=== PATIENT | female | born 1955 | race Caucasian/White ===

== ENCOUNTER 2017-01-07 02:40 | Inpatient (IN) | payer MEDICAID, OTHER ==
--- NOTE | 2017-01-07 03:10 | ED PDOC ---
Arrival/HPI - General Chief Complaint: Abdominal Pain Time Seen by Provider: 01/07/17 02:56 Historian: Patient - History of Present Illness Narrative History of Present Illness (Text): 01/07/17 03:07 Hermelinda Baker is a 61 year old female, whose past medical history includes hypertension, who presents to the Emergency Room complaining of abdominal pain. Patient states after eating at 20:00 yesterday she has been experiencing upper abdominal pain radiating to her back with associated nausea and vomiting. Relative states patient had a similar episode last week, but notes it was not as intense and resolved on its own. Patient denies any fever, chills, chest pain , cough, diarrhea, urinary symptoms, back pain, neck pain, headache, dizziness, or any other complaints. Symptom Onset: Gradual Symptom Course: Unchanged Activities at Onset: Rest, Light Context: Home Past Medical History - Provider Review Nursing Documentation Reviewed: Yes - Cardiac Hx Cardiac Disorders: Yes Hx Hypertension: Yes - Psychiatric Hx Substance Use: No Family/Social History - Physician Review Nursing Documentation Reviewed: Yes Family/Social History: No Known Family HX Smoking Status: Former Smoker Hx Alcohol Use: No Hx Substance Use: No Allergies/Home Meds Allergies/Adverse Reactions: Allergies No Known Allergies Allergy (Unverified 01/01/15 10:21) Review of Systems - Physician Review All systems were reviewed & negative as marked: Yes - Review of Systems Constitutional: Normal. absent: Fevers Eyes: Normal ENT: Normal Respiratory: Normal. absent: SOB, Cough Cardiovascular: Normal. absent: Chest Pain Gastrointestinal: Abdominal Pain, Nausea, Vomiting. absent: Diarrhea Genitourinary Female: Normal. absent: Dysuria, Frequency, Hematuria, Urine Output Changes Musculoskeletal: Normal. absent: Back Pain, Neck Pain Skin: Normal. absent: Rash Neurological: Normal. absent: Headache, Dizziness Endocrine: Normal Hemo/Lymphatic: Normal Psychiatric: Normal Physical Exam Vital Signs Reviewed: Yes Vital Signs Temp Pulse Resp BP Pulse Ox 01/07/17 08:02 72 17 154/78 H 98 01/07/17 07:00 73 17 195/94 H 96 01/07/17 05:45 76 184/92 H 01/07/17 05:30 79 16 205/94 H 96 01/07/17 03:45 71 16 205/91 H 99 01/07/17 03:30 86 16 218/96 H 98 01/07/17 02:52 97.4 F L 76 20 224/107 H 100 Temperature: Afebrile Blood Pressure: Hypertensive Pulse: Regular Respiratory Rate: Normal Appearance: Positive for: Well-Appearing, Non-Toxic, Comfortable Pain Distress: None Mental Status: Positive for: Alert and Oriented X 3 - Systems Exam Head: Present: Atraumatic, Normocephalic Pupils: Present: PERRL Extroacular Muscles: Present: EOMI Conjunctiva: Present: Normal Mouth: Present: Moist Mucous Membranes Neck: Present: Normal Range of Motion Respiratory/Chest: Present: Clear to Auscultation, Good Air Exchange. No: Respiratory Distress, Accessory Muscle Use Cardiovascular: Present: Regular Rate and Rhythm, Normal S1, S2. No: Murmurs Abdomen: Present: Tenderness (Palpable tenderness to RUQ), Normal Bowel Sounds. No: Distention, Peritoneal Signs Back: Present: Normal Inspection Upper Extremity: Present: Normal Inspection. No: Cyanosis, Edema Lower Extremity: Present: Normal Inspection. No: Edema Neurological: Present: GCS=15, CN II-XII Intact, Speech Normal Skin: Present: Warm, Dry, Normal Color. No: Rashes Psychiatric: Present: Alert, Oriented x 3, Normal Insight, Normal Concentration Medical Decision Making ED Course and Treatment: 01/07/17 03:07 Impression: 61 year old female c/o upper abdominal pain, nausea, and vomiting. Differential Diagnosis included but are not limited to: biliary colic vs. gastritis Plan: -- US Gallbladder and Pancreas -- EKG -- CXR -- Labs, lipase -- IV fluids -- Zofran -- Dilaudid -- Reassess and disposition Prior Visits: Notes and results from previous visits were reviewed. Progress Notes: Reviewed EKG, NSR at 77 bpm. No acute changes. 01/07/17 04:33 CXR shows no acute processes. Reviewed sono, US Gallbladder and Pancreas shows: Gallstones with gallbladder wall thickening noting a stone appearing in the neck of the gallbladder. No sonographic Frias's sign demonstrated however. Correlation for acute cholecystitis recommended. 01/07/17 07:00 Case was d/w who accepted on his service. on consult. - Lab Interpretations Microbiology Results: Microbiology Results 01/07/17 05:30 Blood Blood Culture - Preliminary NO GROWTH AFTER 48 HOURS 01/07/17 05:00 Blood Blood Culture - Preliminary NO GROWTH AFTER 48 HOURS Lab Results: 01/07/17 03:10 01/07/17 03:10 Lab Results 01/07/17 03:10: WBC 10.1, RBC 4.45, Hgb 13.2, Hct 38.7, MCV 87.0, MCH 29.7, MCHC 34.1, RDW 13.0, Plt Count 338, MPV 10.0 01/07/17 03:10: Sodium 133, Potassium 3.7, Chloride 98, Carbon Dioxide 22, Anion Gap 17, BUN 12, Creatinine 0.7, Est GFR ( Amer) > 60, Est GFR (Non- Af Amer) > 60, Random Glucose 161 H, Calcium 10.0, Total Bilirubin 0.5, AST 41 H , ALT 30, Alkaline Phosphatase 117, Total Protein 9.1 H, Albumin 4.8, Globulin 4.3, Albumin/Globulin Ratio 1.1, Lipase 83 I have reviewed the lab results: Yes - RAD Interpretation Narrative RAD Interpretations (Text): US Gallbladder and Pancreas shows: Liver: Liver 18.9 cm, prominent. No intrahepatic bile duct dilation. Gallbladder: Multiple gallstones are seen including a gallstone which may be impacted in the neck. The gallbladder wall is 3.4 mm which is abnormally thickened. However as per the computed tomography technologist there was no sonographic Frias's sign. In addition, suggestion of comet tail artifact in keeping with probable small cholesterol polyps. Common bile duct: The common bile duct is 5 mm which is within normal limits. No choledocholithiasis is seen. No dilation. Pancreas: The partially imaged pancreas head no abnormality in its visualized portion. Right kidney: Right kidney measures 11.4 x 4.1 x 4.0 cm with no hydronephrosis, mass, or stones seen. IMPRESSION: Gallstones with gallbladder wall thickening noting a stone appearing in the neck of the gallbladder. No sonographic Frias's sign demonstrated however. Correlation for acute cholecystitis recommended. Radiology Orders: 01/07/17 03:10 CHEST PORTABLE [RAD] Stat GALLBLADDER & PANCREAS [US] Stat Drawing Frame Tender: Radiologist - EKG Interpretation Interpreted by ED Physician: Yes Type: 12 lead EKG - Medication Orders Current Medication Orders: Discontinued Medications Bupivacaine HCl (Marcaine 0.5%) Confirm Administered Dose 30 ml .ROUTE .STK-MED ONE Stop: 01/07/17 15:56 Last Admin: 01/07/17 16:48 Dose: 17 ml Cefazolin Sodium (Ancef) Confirm Administered Dose 1 gm .ROUTE .STK-MED ONE Stop: 01/07/17 15:55 Ceftriaxone Sodium (Rocephin) Confirm Administered Dose 1 gm .ROUTE .STK-MED ONE Stop: 01/07/17 16:12 Cisatracurium Besylate (Nimbex) Confirm Administered Dose 10 mg IV .STK-MED ONE Stop: 01/07/17 16:18 Clonidine HCl (Catapres) 0.2 mg PO STAT STA Stop: 01/07/17 05:28 Last Admin: 01/07/17 05:45 Dose: 0.2 mg Dexamethasone (Decadron Inj) Confirm Administered Dose 10 mg .ROUTE .STK-MED ONE Stop: 01/07/17 16:48 Enoxaparin Sodium (Lovenox) 40 mg SC DAILY [facility] PRN Reason: Protocol Last Admin: 01/08/17 10:57 Dose: Not Given Non-Admin Reason: Patient Refused Fentanyl (Fentanyl) Confirm Administered Dose 200 mcg .ROUTE .STK-MED ONE Stop: 01/07/17 16:07 Glycopyrrolate (Robinul) Confirm Administered Dose 0.8 mg .ROUTE .STK-MED ONE Stop: 01/07/17 17:51 Hydrochlorothiazide (Microzide) 12.5 mg PO DAILY [facility] Last Admin: 01/08/17 10:57 Dose: 12.5 mg Hydromorphone HCl (Dilaudid) 1 mg IVP STAT STA Stop: 01/07/17 03:14 Last Admin: 01/07/17 03:32 Dose: 1 mg Re-Assess: [facility] Pain Assessment Document 01/07/17 04:32 YP (Rec: 01/07/17 06:48 YP [id number]) Pain Reassessment Is this a pain reassessment? Yes Sleep Is patient sleeping during reassessment? No Presence of Pain Presence of Pain No Hydromorphone HCl (Dilaudid) Confirm Administered Dose 1 mg .ROUTE .STK-MED ONE Stop: 01/07/17 03:23 Last Admin: 01/07/17 03:32 Dose: Hydromorphone HCl (Dilaudid) 1 mg IVP STAT STA Stop: 01/07/17 05:08 Last Admin: 01/07/17 05:15 Dose: 1 mg Re-Assess: [facility] Pain Assessment Document 01/07/17 06:15 YP (Rec: 01/07/17 06:48 YP [id number]) Pain Reassessment Is this a pain reassessment? Yes Sleep Is patient sleeping during reassessment? No Presence of Pain Presence of Pain No Hydromorphone HCl (Dilaudid) 0.5 mg IVP Q15M PRN PRN Reason: Pain, moderate (4-7) Stop: 01/07/17 20:28 Sodium Chloride (Sodium Chloride 0.9%) 1,000 mls @ 100 mls/hr IV .Q10H [facility] Last Admin: 01/08/17 05:30 Dose: 100 mls/hr Ceftriaxone Sodium (Rocephin 1 Gram Ivpb) 1 gm in 100 mls @ 200 mls/hr IV ONCE [facility] PRN Reason: Protocol Stop: 01/07/17 05:36 Last Admin: 01/07/17 05:15 Dose: 200 mls/hr Metronidazole (Flagyl) 500 mg in 100 mls @ 100 mls/hr IVPB STAT [facility] PRN Reason: Protocol Stop: 01/07/17 06:07 Last Admin: 01/07/17 06:48 Dose: 100 mls/hr Sodium Chloride (Sodium Chloride 0.9%) 1,000 mls @ 100 mls/hr IV .Q10H [facility] Stop: 01/07/17 17:03 Last Admin: 01/07/17 07:38 Dose: 100 mls/hr Dextrose/Sodium Chloride (Dextrose 5%/0.9% Ns 1000 Ml) 1,000 mls @ 60 mls/hr IV .[id number] [facility] Last Admin: 01/07/17 13:20 Dose: 60 mls/hr Ceftriaxone Sodium (Rocephin 1 Gram Ivpb) 1 gm in 100 mls @ 100 mls/hr IVPB DAILY [facility] PRN Reason: Protocol Last Admin: 01/08/17 10:56 Dose: 100 mls/hr Metronidazole (Flagyl) 500 mg in 100 mls @ 100 mls/hr IVPB Q8 [facility] PRN Reason: Protocol Last Admin: 01/08/17 05:27 Dose: 100 mls/hr Metronidazole (Flagyl) Confirm Administered Dose 500 mg in 100 mls @ ud .ROUTE .STK-MED ONE Stop: 01/07/17 16:12 Lactated Ringer's (Lactated Ringer's) 1,000 mls @ 75 mls/hr IV .[id number] [facility] Stop: 01/07/17 20:29 Iohexol (Omnipaque 240 (50 Ml)) Confirm Administered Dose 50 ml .ROUTE .STK-MED ONE Stop: 01/07/17 15:55 Ketorolac Tromethamine (Toradol) Confirm Administered Dose 30 mg .ROUTE .STK- MED ONE Stop: 01/07/17 06:59 Last Admin: 01/07/17 07:00 Dose: 30 mg Comments: Administered IVP as per verbal order from Dr. Butt Ketorolac Tromethamine (Toradol) Confirm Administered Dose 30 mg .ROUTE .STK- MED ONE Stop: 01/07/17 17:52 Lidocaine (Lidocaine (Bolus)) Confirm Administered Dose 100 mg .ROUTE .STK-MED ONE Stop: 01/07/17 16:07 Midazolam HCl (Versed Inj) Confirm Administered Dose 2 mg .ROUTE .STK-MED ONE Stop: 01/07/17 16:07 Morphine Sulfate (Morphine) 2 mg IVP Q6 PRN PRN Reason: Pain, moderate (4-7) Last Admin: 01/07/17 13:19 Dose: 2 mg Morphine Sulfate (Morphine) 2 mg IVP Q4H PRN PRN Reason: Pain, severe (8-10) Neostigmine Methylsulfate (Neostigmine Methylsulfate) Confirm Administered Dose 3 mg IV .STK-MED ONE Stop: 01/07/17 17:50 Ondansetron HCl (Zofran Inj) 4 mg IVP ONCE ONE Stop: 01/07/17 03:14 Last Admin: 01/07/17 03:19 Dose: 4 mg Ondansetron HCl (Zofran Inj) Confirm Administered Dose 4 mg .ROUTE .STK-MED ONE Stop: 01/07/17 03:23 Last Admin: 01/07/17 03:33 Dose: Ondansetron HCl (Zofran Inj) 8 mg IVP Q8H PRN PRN Reason: Nausea/Vomiting Last Admin: 01/07/17 13:19 Dose: 8 mg Ondansetron HCl (Zofran Inj) Confirm Administered Dose 4 mg .ROUTE .STK-MED ONE Stop: 01/07/17 17:52 Ondansetron HCl (Zofran Inj) 4 mg IVP ONCE PRN PRN Reason: Nausea/Vomiting Ondansetron HCl (Zofran Inj) 4 mg IVP Q4H PRN PRN Reason: Nausea/Vomiting Pantoprazole Sodium (Protonix Inj) 40 mg IVP ONCE [facility] Stop: 01/07/17 07:08 Last Admin: 01/07/17 07:38 Dose: 40 mg Pantoprazole Sodium (Protonix Inj) 40 mg IVP DAILY [facility] Last Admin: 01/08/17 10:57 Dose: 40 mg Phenylephrine HCl (Phenylephrine Inj) Confirm Administered Dose 10 mg .ROUTE .STK-MED ONE Stop: 01/07/17 16:07 Propofol (Diprivan) Confirm Administered Dose 200 mg .ROUTE .STK-MED ONE Stop: 01/07/17 16:06 Succinylcholine Chloride (Quelicin) Confirm Administered Dose 200 mg IV .STK- MED ONE Stop: 01/07/17 16:09 Tramadol HCl (Ultram) 50 mg PO Q6 PRN PRN Reason: Pain, moderate (4-7) - Scribe Statement Constance Burgess Provider Attestation: All medical record entries made by the Scribe were at my direction and personally dictated by me. I have reviewed the chart and agree that the record accurately reflects my personal performance of the history, physical exam, medical decision making, and the department course for this patient. I have also personally directed, reviewed, and agree with the discharge instructions and disposition. Disposition/Present on Arrival - Present on Arrival Any Indicators Present on Arrival: No History of DVT/PE: No History of Uncontrolled Diabetes: No Urinary Catheter: No History of Decub. Ulcer: No History Surgical Site Infection Following: None - Disposition Have Diagnosis and Disposition been Completed?: Yes Diagnosis: Cholecystitis, Biliary colic Disposition: HOSPITALIZED Disposition Time: 07:00 Patient Plan: Admission Condition: STABLE
[2017-01-07] MEDS ORDERED: HYDROmorphone 1 mg/ml ISec IVP STA ×2 (03:13→05:07)
[2017-01-07] MEDS: Sodium Chloride 0.9% 1,000 ML IV SCH ×2 (03:15→13:19)
[2017-01-07] MEDS ORDERED: HYDROmorphone 1 mg/ml ISec ONE (03:22)
[2017-01-07 03:34] LABS: HEMATOCRIT 38.7 % (36.0-48.0); MEAN CORPUSCULAR HEMOGLOBIN 29.7 pg (25.0-35.0); MEAN CORPUSCULAR HGB CONC 34.1 g/dl (31.0-37.0); WHITE BLOOD COUNT 10.1 10^3/ul (4.5-11.0)
[2017-01-07 03:48] LABS: ALB/GLOB RATIO 1.1 (1.1-1.8); ALKALINE PHOSPHATASE 117 U/L (38-133); ALT/SGPT 30 U/L (7-56); AST/SGOT 41 U/L (15-39); BILIRUBIN,TOTAL 0.5 mg/dL (0.2-1.3); BLOOD UREA NITROGEN 12 mg/dL (7-21); CARBON DIOXIDE 22 mmol/L (21-33); CHLORIDE 98 mmol/L (95-110); GFR AFRICAN-AMERICAN > 60; GLUCOSE,RANDOM 161 mg/dL (70-110); LIPASE 83 U/L (23-300); POTASSIUM 3.7 mmol/L (3.6-5.0); SODIUM 133 mmol/L (132-148); TOTAL PROTEIN 9.1 g/dL (5.8-8.3)
--- NOTE | 2017-01-07 04:32 | US ---
EXAM: US Abdomen Limited, Right Upper Quadrant CLINICAL HISTORY: 61 years old, female; Pain; Abdominal pain; Generalized; Additional info: Upper upper abdominal pain TECHNIQUE: Real-time ultrasound of the right upper quadrant with image documentation. EXAM DATE/TIME: Exam ordered 01/07/2017 3:10 AM COMPARISON: No relevant prior studies available. FINDINGS: Liver: Liver 18.9 cm, prominent. No intrahepatic bile duct dilation. Gallbladder: Multiple gallstones are seen including a gallstone which may be impacted in the neck. The gallbladder wall is 3.4 mm which is abnormally thickened. However as per the medical technologist microbiology there was no sonographic Frias's sign. In addition, suggestion of comet tail artifact in keeping with probable small cholesterol polyps. Common bile duct: The common bile duct is 5 mm which is within normal limits. No choledocholithiasis is seen. No dilation. Pancreas: The partially imaged pancreas head no abnormality in its visualized portion. Right kidney: Right kidney measures 11.4 x 4.1 x 4.0 cm with no hydronephrosis, mass, or stones seen. IMPRESSION: Gallstones with gallbladder wall thickening noting a stone appearing in the neck of the gallbladder. No sonographic Frias's sign demonstrated however. Correlation for acute cholecystitis recommended.
[2017-01-07] MEDS ORDERED: cefTRIAXone 1 gm 1 GM/100 ML BAG IV STA (05:07)
[2017-01-07] MEDS ORDERED: metroNIDAZOLE IV 500 mg/100 ml 500 MG/100 ML BAG IVPB STA (05:08)
[2017-01-07] MEDS ORDERED: Sodium Chloride 0.9% 1,000 ML IV STA (07:04)
[2017-01-07] MEDS ORDERED: Dextrose 5%/0.9% NS 1,000 ML IV SCH (08:45)
--- NOTE | 2017-01-07 08:51 | RAD ---
HISTORY: Fever COMPARISON: No prior. FINDINGS: LUNGS: The lungs are clear. PLEURA: No significant pleural effusion identified, no pneumothorax apparent. CARDIOVASCULAR: Normal. OSSEOUS STRUCTURES: No significant abnormalities. VISUALIZED UPPER ABDOMEN: Normal. OTHER FINDINGS: None. IMPRESSION: No active pulmonary disease.
[2017-01-07] MEDS: Enoxaparin 40 mg Syringe SC SCH (10:00)
[2017-01-07] MEDS ORDERED: Morphine 2 mg/ml ISec IVP PRN ×2 (13:11→18:30)
--- NOTE | 2017-01-07 13:22 | CARD ---
APPROVED REPORT EXAM: Two-dimensional and M-mode echocardiogram with Doppler and color Doppler. INDICATION Hypertension/HCVD 2D DIMENSIONS Left Atrium (2D)3.3 (1.6-4.0cm)IVSd1.4 (0.7-1.1cm) LVDd4.1 (3.9-5.9cm)PWd1.2 (0.7-1.1cm) LVDs2.7 (2.5-4.0cm)FS (%) 35.4 % LVEF (%)65.2 (>50%) M-Mode DIMENSIONS Aortic Root2.30 (2.2-3.7cm)Aortic Cusp Exc.1.60 (1.5-2.0cm) Aortic Valve AoV Peak Dxzgmgdv572.0cm/Carlita Peak GR.13mmHg Mitral Valve MV E Biufgioj62.9cm/sMV A Wlcoleuo37.8cm/sE/A ratio0.8 TDI E/Lateral E'0.0E/Medial E'0.0 Tricuspid Valve TR Peak Fgryeeop253nr/sRAP [id number] Peak Gr.22mmHg [id number] LEFT VENTRICLE The left ventricle is normal size. There is mild concentric left ventricular hypertrophy. The left ventricular function is normal. The left ventricular ejection fraction is within the normal range. There is normal LV segmental wall motion. Transmitral Doppler flow pattern is Grade I-abnormal relaxation pattern. RIGHT VENTRICLE The right ventricle is normal size. There is normal right ventricular wall thickness. The right ventricular systolic function is normal. ATRIA The left atrium size is normal. The right atrium size is normal. AORTIC VALVE The aortic valve is mildly thickened. No aortic regurgitation is present. MITRAL VALVE The mitral valve is normal in structure. There is no mitral valve regurgitation noted. TRICUSPID VALVE There is mild tricuspid regurgitation. GREAT VESSELS The aortic root is normal in size. The IVC is normal in size and collapses >50% with inspiration. PERICARDIAL EFFUSION There is a trace loculated anterior pericardial effusion. <Conclusion> The left ventricle is normal size. There is mild concentric left ventricular hypertrophy. The left ventricular function is normal. The left ventricular ejection fraction is within the normal range. There is normal LV segmental wall motion. Transmitral Doppler flow pattern is Grade I-abnormal relaxation pattern.
[2017-01-07] MEDS: metroNIDAZOLE IV 500 mg/100 ml 500 MG/100 ML BAG IVPB SCH ×2 (14:00→21:38)
--- NOTE | 2017-01-07 15:27 | CP.PCM.CON ---
<Ceasar Ivy - Last Filed: 01/07/17 15:27> History of Present Illness - History of Present Illness History of Present Illness: Surgery: Dr. Sarmiento Reason for consult: possible cholecystitis CC: RUQ abdominal pain HPI: Patient is a 61 y/o female who presents complaining of severe RUQ abdominal pain that started last night. She states the pain was severe in nature and located only in RUQ. She describes the pain as sharp, associated w/ nausea and vomiting x10. She denies constipation or diarrhea, fever or chills. She states she had similar pain in the past about 2 weeks ago however the pain was not as severe and eventually subsided. She did have vomiting at that time as well but attributed the symptoms to "something she ate". She denies chest pain, SOB. PMH: HTN PSH: denies Social: denies etoh, tobacco use Review of Systems - Review of Systems All systems: reviewed and no additional remarkable complaints except Review of Systems: negative unless stated in HPI Past Patient History - Past Social History Smoking Status: Former Smoker - CARDIAC Hx Cardiac Disorders: Yes Hx Hypertension: Yes - PSYCHIATRIC Hx Substance Use: No - SURGICAL HISTORY Hx Surgeries: No Meds Allergies/Adverse Reactions: Allergies Allergy/AdvReac Type Severity Reaction Status Date / Time No Known Allergies Allergy Unverified 01/01/15 10:21 - Medications Medications: Current Medications Enoxaparin Sodium (Lovenox) 40 mg SC DAILY [facility] PRN Reason: Protocol Last Admin: 01/07/17 10:00 Dose: 40 mg Sodium Chloride (Sodium Chloride 0.9%) 1,000 mls @ 100 mls/hr IV .Q10H [facility] Last Admin: 01/07/17 13:19 Dose: 100 mls/hr Sodium Chloride (Sodium Chloride 0.9%) 1,000 mls @ 100 mls/hr IV .Q10H [facility] Stop: 01/07/17 17:03 Last Admin: 01/07/17 07:38 Dose: 100 mls/hr Dextrose/Sodium Chloride (Dextrose 5%/0.9% Ns 1000 Ml) 1,000 mls @ 60 mls/hr IV .[id number] [facility] Last Admin: 01/07/17 13:20 Dose: 60 mls/hr Ceftriaxone Sodium (Rocephin 1 Gram Ivpb) 1 gm in 100 mls @ 100 mls/hr IVPB DAILY [facility] PRN Reason: Protocol Metronidazole (Flagyl) 500 mg in 100 mls @ 100 mls/hr IVPB Q8 [facility] PRN Reason: Protocol Morphine Sulfate (Morphine) 2 mg IVP Q6 PRN PRN Reason: Pain, moderate (4-7) Last Admin: 01/07/17 13:19 Dose: 2 mg Ondansetron HCl (Zofran Inj) 8 mg IVP Q8H [facility] PRN Reason: Nausea/Vomiting Last Admin: 01/07/17 13:19 Dose: 8 mg Pantoprazole Sodium (Protonix Inj) 40 mg IVP DAILY [facility] Physical Exam - Constitutional Appears: Non-toxic, No Acute Distress - Head Exam Head Exam: ATRAUMATIC, NORMOCEPHALIC - Eye Exam Eye Exam: EOMI, Normal appearance - ENT Exam ENT Exam: Mucous Membranes Moist - Respiratory Exam Respiratory Exam: NORMAL BREATHING PATTERN. absent: Respiratory Distress - Cardiovascular Exam Cardiovascular Exam: REGULAR RHYTHM. absent: Tachycardia - GI/Abdominal Exam GI & Abdominal Exam: Soft, Tenderness (RUQ tenderness). absent: Guarding, Rebound, Rigid - Extremities Exam Extremities exam: Positive for: normal inspection. Negative for: calf tenderness - Neurological Exam Neurological exam: Alert, Oriented x3 - Psychiatric Exam Psychiatric exam: Normal Affect, Normal Mood Results - Vital Signs Recent Vital Signs: Last Vital Signs Temp 97.4 F L 01/07/17 02:52 Pulse 72 01/07/17 08:02 Resp 17 01/07/17 08:02 BP 154/78 H 01/07/17 08:02 Pulse Ox 98 01/07/17 08:02 - Labs Result Diagrams: 01/07/17 03:10 01/07/17 03:10 Assessment & Plan - Assessment and Plan (Free Text) Assessment: 61 y/o female w/ acute cholecystitis Plan: -gallbladder not visualized on HIDA scan -NPO -OR today -IVFs -d/w Dr. Sarmiento AKWhite PGY1 <Jamie Sarmiento - Last Filed: 01/08/17 17:46> Results - Vital Signs Recent Vital Signs: Last Vital Signs Temp 98.2 F 01/08/17 06:00 Pulse 67 01/08/17 06:00 Resp 18 01/08/17 06:00 BP 144/87 01/08/17 06:00 Pulse Ox 95 01/08/17 06:00 - Labs Result Diagrams: 01/08/17 07:00 01/08/17 07:00 Labs: Laboratory Results - last 24 hr 01/08/17 01/08/17 07:00 07:00 WBC 10.8 RBC 3.95 Hgb 11.6 L Hct 34.6 L MCV 87.6 MCH 29.4 MCHC 33.5 RDW 12.9 Plt Count 298 MPV 10.3 Gran % 88.8 H Lymph % (Auto) 6.6 L [place] % (Auto) 4.6 Eos % (Auto) 0.0 L Baso % (Auto) 0.0 Gran # 9.56 H Lymph # 0.7 L [place] # 0.5 Eos # 0.0 Baso # 0.00 Sodium 132 Potassium 3.8 Chloride 101 Carbon Dioxide 23 Anion Gap 12 BUN 15 Creatinine 0.8 Est GFR ( Amer) > 60 Est GFR (Non-Af Amer) > 60 Random Glucose 117 H Calcium 8.7 Total Bilirubin 0.5 AST 65 H ALT 49 Alkaline Phosphatase 86 Total Protein 7.3 Albumin 3.6 Globulin 3.7 Albumin/Globulin Ratio 1.0 L Assessment & Plan - Assessment and Plan (Free Text) Plan: Patient was seen, evaluated and examined by me. I agree with the assessment and plan as per the resident's note. - Date & Time Date: 01/07/17 Time: 10:20
[2017-01-07] MEDS ORDERED: Iohexol 240 (50 ml) ONE (15:54)
[2017-01-07] MEDS ORDERED: Bupivacaine 0.5% Inj(30mL) ONE (15:55)
[2017-01-07] MEDS ORDERED: Propofol 10 mg/ml Inj (20 ML) ONE (16:05)
[2017-01-07] MEDS ORDERED: Phenylephrine 10 mg/ml Inj ONE (16:06)
[2017-01-07] MEDS ORDERED: Midazolam 2 MG/2 ML VIAL ONE (16:06)
[2017-01-07] MEDS ORDERED: Succinylcholine 200 mg/10 ml Inj IV ONE (16:08)
[2017-01-07] MEDS ORDERED: metroNIDAZOLE IV 500 mg/100 ml 0 MG/0 ML BAG ONE (16:11)
[2017-01-07] MEDS ORDERED: cefTRIAXone (Rocephin) 1 gm Inj ONE (16:11)
[2017-01-07] MEDS ORDERED: Neostigmine Methylsulfate 3mg/3ml Syringe IV ONE (17:49)
--- NOTE | 2017-01-07 18:25 | PCM.SURG1 ---
Surgeon's Initial Post Op Note - Surgeon's Notes Surgeon: Dr. Sarmiento Woven Label Designer: Dr. Ivy Type of Anesthesia: General Endo, Local Pre-Operative Diagnosis: acute cholecystitis Operative Findings: see operative report Post-Operative Diagnosis: acute cholecystitis Operation Performed: laparoscopic cholecystectomy, attempted IOC Specimen/Specimens Removed: gallbladder Estimated Blood Loss: EBL {In ML}: 10 Blood Products Given: N/A Drains Used: No Drains Post-Op Condition: Good Date of Surgery/Procedure: 01/07/17 Time of Surgery/Procedure: 18:24
[2017-01-07] MEDS ORDERED: HYDROmorphone 0.5 mg/0.5 ml ISec IVP PRN (18:28)
[2017-01-07] MEDS ORDERED: Lactated Ringer's 1,000 ML IV SCH (18:28)
[2017-01-07] MEDS ORDERED: Morphine 4 mg/ml ISec IVP PRN (18:30)
--- NOTE | 2017-01-07 18:57 | NM ---
PROCEDURE: Nuclear Medicine Hepatobiliary Scan HISTORY: Cholecystitis COMPARISON: January 07, 2017. Gallbladder ultrasound. TECHNIQUE: 5.3 mCi of technetium 99m Mebrofenin was administered intravenously. Planar images of the abdomen were obtained at 5 min intervals to 60 mins. Delayed images were also obtained. FINDINGS: LIVER: Timely and homogenous uptake. COMMON BILE DUCT: identified at 15 mins. GALLBLADDER: Not identified at 04:00. SMALL BOWEL: Identified at 15 mins. IMPRESSION: Positive Hepatobiliary Scan. The cystic duct is occluded consistent with clinically suspected cholecystitis and findings on recent ultrasound. .
--- NOTE | 2017-01-07 23:11 | CARD ---
APPROVED REPORT EKG Measurement Heart [id number] <Conclusion> Normal sinus rhythm Possible Left atrial enlargement Borderline ECG
--- NOTE | 2017-01-08 00:10 | CP.PCM.HP ---
History of Present Illness - History of Present Illness History of Present Illness: A 61 yr old female with hx of HTN on meds came with c\o abdominal pain epigastric started 1days ago, worsening gradually ,did not get better with pain meds she has been experiencing upper abdominal pain radiating to her back with associated nausea and vomiting. Relative states patient had a similar episode last week, but notes it was not as intense and resolved on its own. Patient denies any fever, chills, chest pain, cough, diarrhea, urinary symptoms , back pain, neck pain, headache, dizziness, or any other complaints. u\s abdomen showed gall stones with stone CBD. Present on Admission - Present on Admission Any Indicators Present on Admission: No Review of Systems - Constitutional Constitutional: absent: Chills, Fever, Increased Appetite, Weight Loss - EENT Nose/Mouth/Throat: absent: Nasal Obstruction, Post Nasal Drip, Dysphagia, Sore Throat - Respiratory Respiratory: Change in Mucous Color. absent: Cough, Chest Congestion - Gastrointestinal Gastrointestinal: Nausea, Vomiting. absent: Change in Stool Character, Constipation, Diarrhea - Genitourinary Genitourinary: absent: Flank Pain, Urinary Frequency, Voiding Freq/Small Amts - Musculoskeletal Musculoskeletal: Arthralgias, Limited Range of Motion. absent: Myalgias - Integumentary Integumentary: absent: Erythema, Lesions, Non-Healing Lesions, Sores - Psychiatric Psychiatric: absent: Behavioral Changes, Difficulty Concentrating, Hallucinations - Endocrine Endocrine: Fatigue. absent: Palpitations - Hematologic/Lymphatic Hematologic: absent: Lymphadenopathy Past Patient History - Past Social History Smoking Status: Former Smoker - CARDIAC Hx Cardiac Disorders: Yes Hx Hypertension: Yes - HEMATOLOGICAL/ONCOLOGICAL Hx Blood Transfusions: No - MUSCULOSKELETAL/RHEUMATOLOGICAL Hx Falls: No - PSYCHIATRIC Hx Substance Use: No - SURGICAL HISTORY Hx Surgeries: No - ANESTHESIA Hx Anesthesia Reactions: No Meds Home Medications: Home Medication List Medication Instructions Recorded Confirmed Type Amoxicillin/Clavulanate [Augmentin 1 tab PO BID #10 tab 01/08/17 Rx 875 MG-125 MG] hydroCHLOROthiazide [Microzide] 12.5 mg PO DAILY cap 01/08/17 Rx traMADol [Ultram] 50 mg PO BID PRN #30 tab 01/08/17 Rx Allergies/Adverse Reactions: Allergies Allergy/AdvReac Type Severity Reaction Status Date / Time No Known Allergies Allergy Unverified 01/01/15 10:21 Physical Exam - Constitutional Appears: Well, Non-toxic, No Acute Distress - Head Exam Head Exam: ATRAUMATIC, NORMAL INSPECTION - Eye Exam Eye Exam: EOMI, Normal appearance, PERRL - ENT Exam ENT Exam: Mucous Membranes Moist, Normal Exam - Neck Exam Neck exam: Negative for: Tenderness - Respiratory Exam Respiratory Exam: Clear to Auscultation Bilateral, NORMAL BREATHING PATTERN. absent: Rhonchi, Wheezes - Cardiovascular Exam Cardiovascular Exam: REGULAR RHYTHM, +S1, +S2. absent: Systolic Murmur - GI/Abdominal Exam GI & Abdominal Exam: Normal Bowel Sounds, Soft, Tenderness Additional comments: positive for murphys sign diffuse tenderness - Extremities Exam Extremities exam: Positive for: normal inspection, pedal pulses present. Negative for: pedal edema - Back Exam Back exam: absent: CVA tenderness (L), CVA tenderness (R) - Neurological Exam Neurological exam: Alert, Normal Gait, Oriented x3 - Psychiatric Exam Psychiatric exam: Normal Affect, Normal Mood - Skin Skin Exam: Intact, Normal Color Results - Vital Signs Recent Vital Signs: Last Vital Signs Temp 99.3 F 01/07/17 20:00 Pulse 71 01/07/17 20:00 Resp 20 01/07/17 20:00 BP 128/69 01/07/17 20:00 Pulse Ox 99 01/07/17 22:10 - Labs Result Diagrams: 01/08/17 07:00 01/08/17 07:00 - EKG Data EKG Interpreted by: Other EKG shows normal: Sinus rhythm, ST-T waves Rate: Normal - Imaging and Cardiology Chest x-ray Status: Report reviewed by me US - abdomen Status: Report reviewed by me Assessment & Plan (1) Epigastric pain Status: Acute (2) HTN (hypertension) Status: Chronic (3) Nausea and vomiting Status: Acute - Assessment and Plan (Free Text) Plan: 1. abdominal pain likley due to cholecystitis r\o cholangitis f\u labs pain meds inf NPO SX consult IV abx reviwed labs\ cxr\ekg patient is mild to moderate risk for sx 2. catapress given IN er 3.IV PROTONIX scd d\w family who are bed side in detail. Decision To Admit - Pt Status Changed To: Hospital Disposition Of: Inpatient Admission - Admit Certification Admit to Inpatient:: After my assessment, the patient will require hospitalization for at least two midnights. This is because of the severity of symptoms shown, intensity of services needed, and/or the medical risk in this patient being treated as an outpatient. - . Bed Request Type: Med/Surg Admitting Physician: Rickey Romero
[2017-01-08] MEDS ORDERED: Morphine 2 mg/ml ISec IVP PRN (02:39)
[2017-01-08] MEDS: metroNIDAZOLE IV 500 mg/100 ml 500 MG/100 ML BAG IVPB SCH (05:27)
[2017-01-08] MEDS: Sodium Chloride 0.9% 1,000 ML IV SCH (05:30)
[2017-01-08 07:49] LABS: ADD MANUAL DIFF? NO
[2017-01-08 07:53] LABS: GRAN # 9.56 (1.4-6.5); GRAN % 88.8 % (50.0-68.0); HEMATOCRIT 34.6 % (36.0-48.0); LYMPH # 0.7 (1.2-3.4); LYMPH % 6.6 % (22.0-35.0); MEAN CELL VOLUME 87.6 fL (80.0-105.0); MEAN CORPUSCULAR HEMOGLOBIN 29.4 pg (25.0-35.0); MEAN CORPUSCULAR HGB CONC 33.5 g/dl (31.0-37.0); MEAN PLATELET VOLUME 10.3 fl (7.0-11.0); MONO # 0.5 (0.1-0.6); MONO % 4.6 % (1.0-6.0); PLATELET COUNT 298 10^3/uL (120.0-450.0); RED CELL DISTRIBUTION WIDTH 12.9 % (11.5-14.5); WHITE BLOOD COUNT 10.8 10^3/ul (4.5-11.0)
[2017-01-08 08:08] LABS: ALKALINE PHOSPHATASE 86 U/L (38-133); ALT/SGPT 49 U/L (7-56); AST/SGOT 65 U/L (15-39); BILIRUBIN,TOTAL 0.5 mg/dL (0.2-1.3); BLOOD UREA NITROGEN 15 mg/dL (7-21); CALCIUM 8.7 mg/dL (8.4-10.5); CARBON DIOXIDE 23 mmol/L (21-33); CHLORIDE 101 mmol/L (98-107); GFR AFRICAN-AMERICAN > 60; GLUCOSE,RANDOM 117 mg/dL (70-110); POTASSIUM 3.8 mmol/L (3.6-5.0); SODIUM 132 mmol/L (132-148); TOTAL PROTEIN 7.3 g/dL (5.8-8.3)
[2017-01-08 09:59] VITALS: BP 144/87; PULSE 67; RESP 18; TEMP 98.2; O2SAT 95
[2017-01-08] MEDS ORDERED: cefTRIAXone 1 gm 1 GM/100 ML BAG IVPB SCH (10:00)
[2017-01-08] MEDS: Enoxaparin 40 mg Syringe SC SCH (10:57)
--- NOTE | 2017-01-08 12:29 | OP ---
PROCEDURE DATE: 01/07/2017 PREOPERATIVE DIAGNOSES: Acute cholecystitis, cholelithiasis. POSTOPERATIVE DIAGNOSES: Acute cholecystitis, cholelithiasis. PROCEDURE PERFORMED: Laparoscopic cholecystectomy with intraoperative cholangiogram. SURGEON: Dr. Sarmiento. ARTIST'S MANAGER: Dr. Ivy. ANESTHESIOLOGIST: Dr. Sharma. ANESTHESIA: General endotracheal anesthesia. ESTIMATED BLOOD LOSS: Minimal. SPECIMEN: Gallbladder with gallstones. INDICATION: The patient is a 61-year-old female admitted with nausea, vomiting , abdominal pain in the right upper quadrant as well as ultrasound showing presence of acute cholecystitis. The patient was scheduled for laparoscopic cholecystectomy. First, I performed a timeout and proceeded to place with everybody in the room, identifying patient's identity, diagnosis, and procedure to be performed. DESCRIPTION OF PROCEDURE: The patient was attached to EKG, blood pressure and pulse oximeter monitors. The patient then underwent general endotracheal anesthesia and was prepped and draped in usual sterile fashion. Using 2 tie clips, the anterior abdominal wall was elevated and Varice needle was inserted through a small incision superior to the umbilicus. Once hemoperitoneum was obtained, a 12 mm trocar was inserted through that incision and careful evaluation with the scope revealed the presence of a distended, thick-walled gallbladder, covered with omentum. A second 5 mm trocar was inserted in subxiphoid position and careful dissection begun where first omentum was detached from the gallbladder. The gallbladder was very distended and therefore, it was drained with a laparoscopic needle. Once completely drained of the bile, the gallbladder was grabbed, elevated and infundibulum of the gallbladder was carefully dissected from the attachments and the cystic duct was exposed and dissected out. The cystic artery was directly behind. It was also cleaned and visualized. Now, the cystic duct was clipped distally and an attempt at cholangiogram was performed; however, I was unable to cannulate the cystic duct as this was very small cystic duct lumen and therefore aborted this procedure and proceeded with clipping the cystic duct distally and transecting. Cystic artery was also clipped and transected and the gallbladder was carefully taken off its liver bed using electrocautery. Once completely detached from the liver, it was placed in EndoCatch bag and removed through the periumbilical incision. The right upper quadrant was now copiously irrigated and all the irrigant fluid was suctioned out. There was excellent hemostasis noted. There was no remaining fluid in the belly. The trocar sites were evaluated with the scope from both the 5 mm and 12 mm incision sites with no evidence of any bleeding intraabdominally. The pneumoperitoneum was now released, trocars removed and the wounds closed using 0 Vicryl for the fascia, 3 -0 Vicryl for subcutaneous tissue and 4-0 Monocryl for skin. Sterile Dermabond dressing was applied to the wound. The patient tolerated the procedure well and there were no complications. The patient was awakened and transferred to recovery room for further observation. Jamie Sarmiento MD cc: [id number] TT: 01/08/2017 12:29:23 jn MTDD
--- NOTE | 2017-01-08 18:43 | CP.PCM.PN ---
Subjective - Date & Time of Evaluation Date of Evaluation: 01/08/17 Time of Evaluation: 07:00 - Subjective Subjective: General Surgery - DR. Sarmiento PT S&E. Doing well post-operatively. HUGO. Pt is tolerating liquid diet. She states her pain is much better after surgery. She has been OOB and ambulating within the room. No N/V, F/C, SOB/Cp. Objective - Vital Signs/Intake and Output Vital Signs (last 24 hours): Temp Pulse Resp BP Pulse Ox 98.2 F 67 18 144/87 95 01/08/17 06:00 01/08/17 06:00 01/08/17 06:00 01/08/17 06:00 01/08/17 06:00 Intake and Output: 01/08/17 01/08/17 06:59 18:59 Intake Total 1200 420 Balance 1200 420 - Labs Labs: 01/08/17 07:00 01/08/17 07:00 - Constitutional Appears: No Acute Distress - Head Exam Head Exam: ATRAUMATIC, NORMAL INSPECTION, NORMOCEPHALIC - Eye Exam Eye Exam: Normal appearance - ENT Exam ENT Exam: Mucous Membranes Moist - Respiratory Exam Respiratory Exam: NORMAL BREATHING PATTERN. absent: Respiratory Distress - GI/Abdominal Exam GI & Abdominal Exam: Soft. absent: Distended, Guarding, Tenderness, Rebound Additional comments: surgical incisions C/D/I with dermabond - Neurological Exam Neurological Exam: Alert, Oriented x3 - Psychiatric Exam Psychiatric exam: Normal Affect, Normal Mood - Skin Skin Exam: Dry, Intact Assessment and Plan - Assessment and Plan (Free Text) Assessment: 61 yo F s/p lap cholecystectomy, POD #1 -Doing well post-operatively -Advance to regular diet -PO pain control -If tolerating regular diet pt is clear for discharge home from surgical standpoint -Instructions given to pt., she is to F/U with Dr. Sarmiento in [address] Torsten Serrano PGY2
--- NOTE | 2017-01-10 21:04 | CP.PCM.DIS ---
Provider - Provider Date of Admission: 01/07/17 07:02 Attending physician: Rickey Romero MD Primary care physician: eMndez Shah MD Time Spent in preparation of Discharge (in minutes): 30 Diagnosis - Discharge Diagnosis (1) HTN (hypertension) Status: Chronic (2) Nausea and vomiting Status: Resolved (3) Acute cholecystitis Status: Resolved Comment: s\p choleycysyectomy. feeling better. pain free. resume HTN meds. d \c home if sx cleared patient. d\w patient ,reassurance provided. Hospital Course - Lab Results Lab Results: Most Recent Lab Values WBC 10.8 10^3/ul (4.5-11.0) 01/08/17 07:00 RBC 3.95 10^6/uL (3.5-6.1) 01/08/17 07:00 Hgb 11.6 gm/dL (12.0-16.0) L 01/08/17 07:00 Hct 34.6 % (36.0-48.0) L 01/08/17 07:00 MCV 87.6 fL (80.0-105.0) 01/08/17 07:00 MCH 29.4 pg (25.0-35.0) 01/08/17 07:00 MCHC 33.5 g/dl (31.0-37.0) 01/08/17 07:00 RDW 12.9 % (11.5-14.5) 01/08/17 07:00 Plt Count 298 10^3/uL (120.0-450.0) 01/08/17 07:00 MPV 10.3 fl (7.0-11.0) 01/08/17 07:00 Gran % 88.8 % (50.0-68.0) H 01/08/17 07:00 Lymph % (Auto) 6.6 % (22.0-35.0) L 01/08/17 07:00 Cannon % (Auto) 4.6 % (1.0-6.0) 01/08/17 07:00 Eos % (Auto) 0.0 % (1.5-5.0) L 01/08/17 07:00 Baso % (Auto) 0.0 % (0.0-3.0) 01/08/17 07:00 Gran # 9.56 (1.4-6.5) H 01/08/17 07:00 Lymph # 0.7 (1.2-3.4) L 01/08/17 07:00 Cannon # 0.5 (0.1-0.6) 01/08/17 07:00 Eos # 0.0 (0.0-0.7) 01/08/17 07:00 Baso # 0.00 K/mm3 (0.0-2.0) 01/08/17 07:00 Sodium 132 mmol/L (132-148) 01/08/17 07:00 Potassium 3.8 mmol/L (3.6-5.0) 01/08/17 07:00 Chloride 101 mmol/L (98-107) 01/08/17 07:00 Carbon Dioxide 23 mmol/L (21-33) 01/08/17 07:00 Anion Gap 12 (10-20) 01/08/17 07:00 BUN 15 mg/dL (7-21) 01/08/17 07:00 Creatinine 0.8 mg/dL (0.5-1.4) 01/08/17 07:00 Est GFR ( Amer) > 60 01/08/17 07:00 Est GFR (Non-Af Amer) > 60 01/08/17 07:00 Random Glucose 117 mg/dL (70-110) H 01/08/17 07:00 Calcium 8.7 mg/dL (8.4-10.5) 01/08/17 07:00 Total Bilirubin 0.5 mg/dL (0.2-1.3) 01/08/17 07:00 AST 65 U/L (15-39) H 01/08/17 07:00 ALT 49 U/L (7-56) 01/08/17 07:00 Alkaline Phosphatase 86 U/L (38-133) 01/08/17 07:00 Total Protein 7.3 g/dL (5.8-8.3) 01/08/17 07:00 Albumin 3.6 g/dL (3.0-4.8) 01/08/17 07:00 Globulin 3.7 gm/dL 01/08/17 07:00 Albumin/Globulin Ratio 1.0 (1.1-1.8) L 01/08/17 07:00 Lipase 83 U/L (23-300) 01/07/17 03:10 - Hospital Course Hospital Course: tolerating liquids \diet sx cleared patient Discharge Exam - Head Exam Head Exam: ATRAUMATIC, NORMAL INSPECTION - Additional Findings Additional findings: Constitutional Appears: Well, Non-toxic, No Acute Distress - Head Exam Head Exam: ATRAUMATIC, NORMAL INSPECTION - Eye Exam Eye Exam: EOMI, Normal appearance, PERRL - ENT Exam ENT Exam: Mucous Membranes Moist, Normal Exam - Neck Exam Neck exam: Negative for: Tenderness - Respiratory Exam Respiratory Exam: Clear to Auscultation Bilateral, NORMAL BREATHING PATTERN. absent: Rhonchi, Wheezes - Cardiovascular Exam Cardiovascular Exam: REGULAR RHYTHM, +S1, +S2. absent: Systolic Murmur - GI/Abdominal Exam GI & Abdominal Exam: Normal Bowel Sounds, Soft Additional comments: no tenderness - Extremities Exam Extremities exam: Positive for: normal inspection, pedal pulses present. Negative for: pedal edema - Back Exam Back exam: absent: CVA tenderness (L), CVA tenderness (R) - Neurological Exam Neurological exam: Alert, Normal Gait, Oriented x3 - Psychiatric Exam Psychiatric exam: Normal Affect, Normal Mood - Skin Skin Exam: Intact, Normal Color Discharge Plan - Discharge Medications Prescriptions: Amoxicillin/Clavulanate [Augmentin 875 MG-125 MG] 1 tab PO BID #10 tab traMADol [Ultram] 50 mg PO BID PRN #30 tab PRN Reason: Pain, Moderate (4-7) - Follow Up Plan Condition: STABLE Disposition: HOME/ ROUTINE Instructions: Laparoscopic Cholecystectomy (DC) Additional Instructions: Patient discharged to home. Patient to follow up with Dr Garcia upon discharge.
== END 2017-01-08 16:20 | disposition home or self-care (01) | DRG 419 ==
LOC: ED 02:40 → ERH 07:02 → 3RSO 08:16
PROVIDERS: ADMIT Internal Medicine; ATTEND Internal Medicine
PROC: 0FT44ZZ Resection of Gallbladder, Percutaneous Endoscopic Approach (ICD-10-PCS; principal; 2017-01-07 16:30)
DX: K80.12 Calculus of gallbladder with acute and chronic cholecystitis without obstruction (principal); I10 Essential (primary) hypertension; Z87.891 Personal history of nicotine dependence